=== PATIENT | female | born 1985 | race Caucasian/White ===

== ENCOUNTER 2017-11-11 17:11 | Emergency (ER) | payer MEDICAID | END 2017-11-11 20:13 | disposition home or self-care (01) | LOC: D.ER 17:11 | DX: M25.461 Effusion, right knee (principal); W01.0XXA Fall on same level from slipping, tripping and stumbling without subsequent striking against object, initial encounter; Y93.89 Activity, other specified; Y92.019 Unspecified place in single-family (private) house as the place of occurrence of the external cause; F17.200 Nicotine dependence, unspecified, uncomplicated ==